=== PATIENT | male | born 1965 | race African-American/Black ===

== ENCOUNTER 2023-01-21 06:37 | Inpatient (IN) | payer OTHER ==
[~2023-01-21] VITALS: Ht 167.6 cm; Wt 95.0 kg
[2023-01-21] MEDS ORDERED: MAALOX PLUS or MAALOX 30 ML PO ONE (07:45)
[2023-01-21] MEDS ORDERED: ONDANSETRON ODT 4 MG TAB PO ONE (07:45)
[2023-01-21] MEDS ORDERED: SODIUM CHLORIDE 0.9% 1,000 ML IV ONE (08:00)
[2023-01-21 08:09] LABS: Hematocrit 53.1 % (41.0-53.0); Hemoglobin 17.5 g/dL (13.5-17.5); Mean Corpuscular Hemoglobin 29.1 pg (28.0-32.0); Red Blood Cells 6.03 10^6/uL (4.5-5.90); Red Cell Distribution Width 13.3 % (11.8-14.3); White Blood Cell 4.9 10^3/uL (4.4-10.8)
[2023-01-21 08:12] LABS: Band Neutrophils % (manual) 0; Basophils % (manual) 0 (0.0-2.0); Blast Cells 0; Eosinophils % (manual) 0 (0-7); Metamyelocytes % 0; Myelocytes % 0; Promyelocytes % 0; Reactive Lymphocytes 0
[2023-01-21 08:44] LABS: Bilirubin, Direct 0.2 mg/dL (<0.3)
[2023-01-21 09:09] LABS: Lymphocytes % (manual) 21 (10.0-50.0); Monocytes % (manual) 12 (0-12); Platelet Estimate Adequate
[2023-01-21 09:14] LABS: Magnesium 1.9 mg/dL (1.6-2.6)
[2023-01-21 09:19] LABS: COVID19 ANTIGEN SOFIA FIA POSITIVE (NEGATIVE)
[2023-01-21 09:42] LABS: Rapid Influenza A Negative (Negative); Rapid Influenza B Negative (Negative)
[2023-01-21] MEDS ORDERED: ZOFR4T PO (09:48)
[2023-01-21] MEDS ORDERED: NIRM1TAB5 PO (09:48)
[2023-01-21] MEDS ORDERED: METOCLOPRAMIDE HCL 5MG/ml INJ 2ml VIAL IV ONE (10:00)
[2023-01-21 10:05] VITALS: PULSE 82; RESP 19; O2SAT 96
[2023-01-21 10:06] LABS: Alanine Aminotransferase 36 U/L (7-40); Albumin 5.2 g/dL (3.2-4.8); Alkaline Phosphatase 85 U/L (46-116); Anion Gap 10 (5-15); Aspartate Aminotransferase 37 U/L (13-40); BUN/Creatinine Ratio 16.5 (10.0-20.0); Bilirubin, Total 0.5 mg/dL (0.2-1.0); Blood Urea Nitrogen 21 mg/dL (9-23); Calcium 9.9 mg/dL (8.5-10.1); Carbon Dioxide 30 mmol/L (20-30); Chloride 97 mmol/L (98-107); Glucose 108 mg/dL (74-106); Potassium 3.6 mmol/L (3.5-5.1); Sodium 137 mmol/L (136-145); Total Protein 8.3 g/dL (5.7-8.2)
[2023-01-21] MEDS ORDERED: IOHEXOL 350 MG/ML 100ML IJ ONE (10:21)
[2023-01-21 10:34] LABS: Lipase 32 U/L (12-53)
[2023-01-21 10:55] LABS: Base Excess 0.1 mmol/L (-2.0-2.0)
[2023-01-21] MEDS: SODIUM CHLORIDE 0.9% 1,000 ML IV SCH (11:15)
[2023-01-21] MEDS ORDERED: NITROGLYCERIN 0.4 MG SL TAB SL PRN (11:15)
[2023-01-21] MEDS ORDERED: ACETAMINOPHEN 325 MG TAB PO PRN (11:15)
[2023-01-21] MEDS ORDERED: MORPHINE SULFATE INJ 2 MG/ml SYRG IV PRN (11:15)
[2023-01-21] MEDS ORDERED: DexAMETHasone SOD PHOS 10MG/1ML VIAL INJ IV ONE (13:15)
[2023-01-21] MEDS ORDERED: AZITHROMYCIN 500MG/ 250ML 250 ML IV ONE (13:15)
[2023-01-21] MEDS ORDERED: ASCORBIC ACID 500 MG TAB PO ONE (13:15)
[2023-01-21] MEDS ORDERED: CHOLECALCIFEROL (VITD3) 2,000 UNIT CAP/TAB PO ONE (13:15)
[2023-01-21] MEDS: ONDANSETRON HCL 4 MG/2 ML VIAL IV PRN ×2 (13:44→22:26)
[2023-01-21] MEDS ORDERED: ZINC SULFATE 220mg CAP or TAB PO ONE (13:45)
[2023-01-21] MEDS: SODIUM CHLOR 0.9% PF (SALINE LOCK) 10ML VIAL/SYR IV SCH ×2 (13:48→22:06)
[2023-01-21 13:58] LABS: Urine Bacteria NONE SEEN /hpf (None Seen); Urine Blood Negative /uL (Negative); Urine Clarity Clear (Clear); Urine Color Yellow (Yellow); Urine Hyaline Cast MANY /lpf (0 - 2); Urine Mucus FEW (None Seen); Urine Protein, UAD 2+ (Negative); Urine Specific Gravity 1.025 (1.001-1.035); Urine Urobilinogen Normal (Negative); Urine WBC 4 /hpf (0 - 3)
[2023-01-21 14:16] LABS: INR 1.07 (0.9-1.15); Partial Thromboplastin Time 30.5 SEC (24.5-34.5); Prothrombin Time 11.2 sec (9.3-11.8)
[2023-01-21] MEDS ORDERED: REMDESIVIR PER PHARMACY 0 ML IV SCH (16:00)
[2023-01-21] MEDS ORDERED: REMDESIVIR 200 MG in NS 210ml LOADING DOSE ADULT IV ONE (17:00)
[2023-01-21] MEDS: METOCLOPRAMIDE HCL 5MG/ml INJ 2ml VIAL IV SCH (17:48)
[2023-01-21 19:37] VITALS: PULSE 94; RESP 16; O2SAT 99
[2023-01-21] MEDS: ASCORBIC ACID 500 MG TAB PO SCH (22:07)
[2023-01-21 23:21] VITALS: BP 145/95; PULSE 74; RESP 18; TEMP 97.9; O2SAT 97
[2023-01-22] VITALS (10 sets, daily range): BP systolic 144–155; BP diastolic 93–100; PULSE 77–91; RESP 18–22; TEMP 98.1–99.4; O2SAT 97–100
[2023-01-22] MEDS ORDERED: IBUP-1454 PO (01:09)
[2023-01-22] MEDS: SODIUM CHLORIDE 0.9% 1,000 ML IV SCH ×2 (01:57→17:21)
[2023-01-22] MEDS: ONDANSETRON HCL 4 MG/2 ML VIAL IV PRN (03:08)
[2023-01-22] MEDS: SODIUM CHLOR 0.9% PF (SALINE LOCK) 10ML VIAL/SYR IV SCH ×3 (06:08→21:34)
[2023-01-22] MEDS: METOCLOPRAMIDE HCL 5MG/ml INJ 2ml VIAL IV SCH ×3 (06:09→21:37)
[2023-01-22 09:37] LABS: Basophils # (auto) 0 10 ^3/uL (0-0.2); Basophils % (auto) 0.4 % (0.0-2.0); Eosinophils # (auto) 0 10 ^3/uL (0-0.8); Eosinophils % (auto) 0.2 % (0.0-7.0); Lymphocytes # (auto) 1.3 10 ^3/uL (0.4-5.4); Lymphocytes % (auto) 30.1 % (10.0-50.0); Mean Corpuscular Hemoglobin 29.4 pg (28.0-32.0); Mean Corpuscular Hgb Conc. 32.7 g/dL (32.0-36.0); Monocytes # (auto) 0.6 10 ^3/uL (0-1.3); Monocytes % (auto) 13.8 % (0.0-12.0); Neutrophils # (auto) 2.4 10 ^3/uL (1.6-8.6); Neutrophils % (auto) 55.5 % (37.0-80.0); Nucleated Red Blood Cells % 0.2 %; Red Blood Cells 5.44 10^6/uL (4.5-5.90); White Blood Cell 4.2 10^3/uL (4.4-10.8)
[2023-01-22 09:57] LABS: Alanine Aminotransferase 32 U/L (7-40); Albumin 4.6 g/dL (3.2-4.8); Alkaline Phosphatase 73 U/L (46-116); Anion Gap 4 (5-15); Aspartate Aminotransferase 40 U/L (13-40); BUN/Creatinine Ratio 10.9 (10.0-20.0); Blood Urea Nitrogen 11 mg/dL (9-23); CRP High Sensitivity 0.04 mg/dL (<1.0); Calcium 9.1 mg/dL (8.5-10.1); Carbon Dioxide 34 mmol/L (20-30); Chloride 98 mmol/L (98-107); Glucose 97 mg/dL (74-106); Sodium 136 mmol/L (136-145)
[2023-01-22 09:58] LABS: Bilirubin, Total 0.6 mg/dL (0.2-1.0); Total Protein 7.6 g/dL (5.7-8.2)
[2023-01-22] MEDS: AZITHROMYCIN 500MG/ 250ML 250 ML IV SCH (11:29)
[2023-01-22] MEDS: PANTOPRAZOLE 40 MG/10 ML VIAL INJ IV SCH (11:30)
[2023-01-22] MEDS: ZINC SULFATE 220mg CAP or TAB PO SCH (11:30)
[2023-01-22] MEDS: CHOLECALCIFEROL (VITD3) 2,000 UNIT CAP/TAB PO SCH (11:31)
[2023-01-22] MEDS: ASCORBIC ACID 500 MG TAB PO SCH ×2 (11:31→21:34)
[2023-01-22] MEDS: ENOXAPARIN SOD 40 MG/0.4 ML SYRINGE SC SCH (11:32)
[2023-01-22] MEDS: DexAMETHasone SOD PHOS 10MG/1ML VIAL INJ IV SCH (11:33)
[2023-01-22 13:45] LABS: Magnesium 2.1 mg/dL (1.6-2.6)
[2023-01-22] MEDS ORDERED: REMDESIVIR 100mg 100 MG in SODIUM CHL 0.9% 230 ML IV SCH (15:00)
[2023-01-22] MEDS: REMDESIVIR 100mg 100 MG in SODIUM CHL 0.9% 230 ML IV SCH (15:00)
[2023-01-23] VITALS (13 sets, daily range): BP systolic 106–148; BP diastolic 59–106; PULSE 67–98; RESP 18–22; TEMP 97.6–99.8; O2SAT 94–99
[2023-01-23] MEDS: METOCLOPRAMIDE HCL 5MG/ml INJ 2ml VIAL IV SCH ×3 (06:01→21:58)
[2023-01-23] MEDS: SODIUM CHLOR 0.9% PF (SALINE LOCK) 10ML VIAL/SYR IV SCH ×3 (06:01→21:58)
[2023-01-23] MEDS: SODIUM CHLORIDE 0.9% 1,000 ML IV SCH ×2 (06:02→20:27)
[2023-01-23 07:48] LABS: Basophils # (auto) 0 10 ^3/uL (0-0.2); Basophils % (auto) 0.5 % (0.0-2.0); Eosinophils # (auto) 0 10 ^3/uL (0-0.8); Hematocrit 48.7 % (41.0-53.0); Lymphocytes # (auto) 1.6 10 ^3/uL (0.4-5.4); Lymphocytes % (auto) 37.7 % (10.0-50.0); Mean Corpuscular Hemoglobin 29.3 pg (28.0-32.0); Mean Corpuscular Hgb Conc. 32.9 g/dL (32.0-36.0); Mean Corpuscular Volume 89.1 fL (80.0-100.0); Monocytes # (auto) 0.5 10 ^3/uL (0-1.3); Monocytes % (auto) 11.3 % (0.0-12.0); Neutrophils # (auto) 2.1 10 ^3/uL (1.6-8.6); Neutrophils % (auto) 50.5 % (37.0-80.0); Nucleated Red Blood Cells % 0.4 %; Red Blood Cells 5.47 10^6/uL (4.5-5.90); White Blood Cell 4.2 10^3/uL (4.4-10.8)
[2023-01-23 08:08] LABS: Alanine Aminotransferase 33 U/L (7-40); Albumin 4.6 g/dL (3.2-4.8); Alkaline Phosphatase 71 U/L (46-116); Anion Gap 8 (5-15); Aspartate Aminotransferase 35 U/L (13-40); BUN/Creatinine Ratio 12.8 (10.0-20.0); Blood Urea Nitrogen 11 mg/dL (9-23); Calcium 9.4 mg/dL (8.5-10.1); Carbon Dioxide 29 mmol/L (20-30); Chloride 98 mmol/L (98-107); Glucose 83 mg/dL (74-106); Sodium 135 mmol/L (136-145); Total Protein 7.5 g/dL (5.7-8.2)
[2023-01-23] MEDS: CHOLECALCIFEROL (VITD3) 2,000 UNIT CAP/TAB PO SCH (11:04)
[2023-01-23] MEDS: AZITHROMYCIN 500MG/ 250ML 250 ML IV SCH (11:04)
[2023-01-23] MEDS: ZINC SULFATE 220mg CAP or TAB PO SCH (11:05)
[2023-01-23] MEDS: ASCORBIC ACID 500 MG TAB PO SCH ×2 (11:05→21:58)
[2023-01-23] MEDS: ENOXAPARIN SOD 40 MG/0.4 ML SYRINGE SC SCH (11:05)
[2023-01-23] MEDS: PANTOPRAZOLE 40 MG/10 ML VIAL INJ IV SCH (11:06)
[2023-01-23] MEDS: DexAMETHasone SOD PHOS 10MG/1ML VIAL INJ IV SCH (11:06)
[2023-01-23] MEDS: REMDESIVIR 100mg 100 MG in SODIUM CHL 0.9% 230 ML IV SCH (15:00)
[2023-01-23] MEDS: ONDANSETRON HCL 4 MG/2 ML VIAL IV PRN (16:07)
[2023-01-24] VITALS (12 sets, daily range): BP systolic 109–150; BP diastolic 83–103; PULSE 77–107; RESP 15–19; TEMP 97.5–99; O2SAT 91–100
[2023-01-24] MEDS: SODIUM CHLOR 0.9% PF (SALINE LOCK) 10ML VIAL/SYR IV SCH ×3 (05:43→22:00)
[2023-01-24] MEDS: METOCLOPRAMIDE HCL 5MG/ml INJ 2ml VIAL IV SCH ×3 (05:43→21:35)
[2023-01-24 09:22] LABS: Basophils # (auto) 0 10 ^3/uL (0-0.2); Eosinophils # (auto) 0 10 ^3/uL (0-0.8); Eosinophils % (auto) 0.2 % (0.0-7.0); Lymphocytes # (auto) 1.4 10 ^3/uL (0.4-5.4); Lymphocytes % (auto) 33.5 % (10.0-50.0); Mean Corpuscular Hemoglobin 29.1 pg (28.0-32.0); Mean Corpuscular Hgb Conc. 32.7 g/dL (32.0-36.0); Mean Corpuscular Volume 88.9 fL (80.0-100.0); Monocytes # (auto) 0.4 10 ^3/uL (0-1.3); Monocytes % (auto) 9.4 % (0.0-12.0); Neutrophils # (auto) 2.4 10 ^3/uL (1.6-8.6); Neutrophils % (auto) 55.9 % (37.0-80.0); Nucleated Red Blood Cells % 0.2 %; Red Blood Cells 5.51 10^6/uL (4.5-5.90); Red Cell Distribution Width 12.6 % (11.8-14.3); White Blood Cell 4.3 10^3/uL (4.4-10.8)
[2023-01-24 09:28] LABS: Anion Gap 6 (5-15); Carbon Dioxide 29 mmol/L (20-30); Chloride 98 mmol/L (98-107); Potassium 3.7 mmol/L (3.5-5.1); Sodium 133 mmol/L (136-145)
[2023-01-24 09:34] LABS: BUN/Creatinine Ratio 14.5 (10.0-20.0); Blood Urea Nitrogen 12 mg/dL (9-23); Glucose 119 mg/dL (74-106)
[2023-01-24] MEDS: PANTOPRAZOLE 40 MG/10 ML VIAL INJ IV SCH (10:26)
[2023-01-24] MEDS: ENOXAPARIN SOD 40 MG/0.4 ML SYRINGE SC SCH (10:27)
[2023-01-24] MEDS: ASCORBIC ACID 500 MG TAB PO SCH ×2 (10:27→21:35)
[2023-01-24] MEDS: AZITHROMYCIN 500MG/ 250ML 250 ML IV SCH (10:27)
[2023-01-24] MEDS: CHOLECALCIFEROL (VITD3) 2,000 UNIT CAP/TAB PO SCH (10:27)
[2023-01-24] MEDS: DexAMETHasone SOD PHOS 10MG/1ML VIAL INJ IV SCH (10:27)
[2023-01-24] MEDS: ZINC SULFATE 220mg CAP or TAB PO SCH (10:27)
[2023-01-24] MEDS: SODIUM CHLORIDE 0.9% 1,000 ML IV SCH (10:45)
[2023-01-24] MEDS: Ensure HIGH Protein Vanilla 8oz Bottle PO SCH ×2 (12:00→18:00)
[2023-01-24] MEDS: REMDESIVIR 100mg 100 MG in SODIUM CHL 0.9% 230 ML IV SCH (15:00)
[2023-01-25] VITALS (12 sets, daily range): BP systolic 106–149; BP diastolic 58–89; PULSE 16–110; RESP 16–93; TEMP 97.7–99.2; O2SAT 92–98
[2023-01-25] MEDS: SODIUM CHLORIDE 0.9% 1,000 ML IV SCH ×3 (01:03→21:46)
[2023-01-25] MEDS: SODIUM CHLOR 0.9% PF (SALINE LOCK) 10ML VIAL/SYR IV SCH ×3 (06:00→21:46)
[2023-01-25] MEDS: METOCLOPRAMIDE HCL 5MG/ml INJ 2ml VIAL IV SCH ×3 (06:00→21:46)
[2023-01-25] MEDS: Ensure HIGH Protein Vanilla 8oz Bottle PO SCH ×3 (07:44→18:03)
[2023-01-25] MEDS: ENOXAPARIN SOD 40 MG/0.4 ML SYRINGE SC SCH (10:34)
[2023-01-25] MEDS: ASCORBIC ACID 500 MG TAB PO SCH ×2 (10:34→21:46)
[2023-01-25] MEDS: AZITHROMYCIN 500MG/ 250ML 250 ML IV SCH (10:34)
[2023-01-25] MEDS: PANTOPRAZOLE 40 MG/10 ML VIAL INJ IV SCH (10:34)
[2023-01-25] MEDS: DexAMETHasone SOD PHOS 10MG/1ML VIAL INJ IV SCH (10:34)
[2023-01-25] MEDS: CHOLECALCIFEROL (VITD3) 2,000 UNIT CAP/TAB PO SCH (10:34)
[2023-01-25] MEDS: ZINC SULFATE 220mg CAP or TAB PO SCH (10:35)
[2023-01-25] MEDS: REMDESIVIR 100mg 100 MG in SODIUM CHL 0.9% 230 ML IV SCH (15:00)
[2023-01-26] VITALS (9 sets, daily range): BP systolic 128–143; BP diastolic 88–93; PULSE 77–109; RESP 18–20; TEMP 97.9–98.4; O2SAT 62–99
[2023-01-26] MEDS: METOCLOPRAMIDE HCL 5MG/ml INJ 2ml VIAL IV SCH (06:00)
[2023-01-26] MEDS: SODIUM CHLOR 0.9% PF (SALINE LOCK) 10ML VIAL/SYR IV SCH (06:00)
[2023-01-26] MEDS: Ensure HIGH Protein Vanilla 8oz Bottle PO SCH ×2 (08:00→12:15)
[2023-01-26 10:14] LABS: Basophils # (auto) 0 10 ^3/uL (0-0.2); Basophils % (auto) 0.6 % (0.0-2.0); Eosinophils # (auto) 0 10 ^3/uL (0-0.8); Eosinophils % (auto) 0.2 % (0.0-7.0); Hematocrit 47.3 % (41.0-53.0); Hemoglobin 15.8 g/dL (13.5-17.5); Lymphocytes # (auto) 1.4 10 ^3/uL (0.4-5.4); Lymphocytes % (auto) 17.7 % (10.0-50.0); Mean Corpuscular Hemoglobin 29.5 pg (28.0-32.0); Mean Corpuscular Hgb Conc. 33.4 g/dL (32.0-36.0); Mean Corpuscular Volume 88.4 fL (80.0-100.0); Monocytes % (auto) 12.1 % (0.0-12.0); Neutrophils # (auto) 5.7 10 ^3/uL (1.6-8.6); Neutrophils % (auto) 69.4 % (37.0-80.0); Red Blood Cells 5.35 10^6/uL (4.5-5.90); Red Cell Distribution Width 12.5 % (11.8-14.3); White Blood Cell 8.2 10^3/uL (4.4-10.8)
[2023-01-26] MEDS ORDERED: CHOL1CAP47 PO (10:18)
[2023-01-26] MEDS ORDERED: DEXA6TAB PO (10:18)
[2023-01-26] MEDS ORDERED: ASCO500T11 PO (10:18)
[2023-01-26] MEDS ORDERED: ZINC220C10 PO (10:19)
[2023-01-26 10:23] LABS: Chloride 102 mmol/L (98-107); Potassium 3.8 mmol/L (3.5-5.1); Sodium 136 mmol/L (136-145)
[2023-01-26 10:24] LABS: Anion Gap 8 (5-15); Carbon Dioxide 26 mmol/L (20-30)
[2023-01-26 10:25] LABS: Calcium 9.2 mg/dL (8.5-10.1)
[2023-01-26 10:29] LABS: Glucose 100 mg/dL (74-106)
[2023-01-26 10:30] LABS: BUN/Creatinine Ratio 22.1 (10.0-20.0); Blood Urea Nitrogen 19 mg/dL (9-23)
[2023-01-26] MEDS: DexAMETHasone SOD PHOS 10MG/1ML VIAL INJ IV SCH (11:07)
[2023-01-26] MEDS: AZITHROMYCIN 500MG/ 250ML 250 ML IV SCH (11:07)
[2023-01-26] MEDS: ZINC SULFATE 220mg CAP or TAB PO SCH (11:07)
[2023-01-26] MEDS: PANTOPRAZOLE 40 MG/10 ML VIAL INJ IV SCH (11:07)
[2023-01-26] MEDS: ENOXAPARIN SOD 40 MG/0.4 ML SYRINGE SC SCH ×2 (11:08→12:15)
[2023-01-26] MEDS: ASCORBIC ACID 500 MG TAB PO SCH (11:08)
[2023-01-26] MEDS: CHOLECALCIFEROL (VITD3) 2,000 UNIT CAP/TAB PO SCH (11:08)
== END 2023-01-26 15:23 | disposition home or self-care (01) | DRG 177 ==
LOC: ER 06:37 → TELE 11:03 → TELE-WESTW 11:12
PROVIDERS: ADMIT Internal Medicine Geriatric Medicine; ATTEND Internal Medicine
PROC: XW033E5 Introduction of Remdesivir Anti-infective into Peripheral Vein, Percutaneous Approach, New Technology Group 5 (ICD-10-PCS; principal; 2023-01-21)
PROC: 5A09357 Assistance with Respiratory Ventilation, Less than 24 Consecutive Hours, Continuous Positive Airway Pressure (ICD-10-PCS; 2023-01-22)
PROC: 5A09357 Assistance with Respiratory Ventilation, Less than 24 Consecutive Hours, Continuous Positive Airway Pressure (ICD-10-PCS; 2023-01-23)
PROC: 5A09357 Assistance with Respiratory Ventilation, Less than 24 Consecutive Hours, Continuous Positive Airway Pressure (ICD-10-PCS; 2023-01-24)
PROC: 5A09357 Assistance with Respiratory Ventilation, Less than 24 Consecutive Hours, Continuous Positive Airway Pressure (ICD-10-PCS; 2023-01-25)
PROC: 5A09357 Assistance with Respiratory Ventilation, Less than 24 Consecutive Hours, Continuous Positive Airway Pressure (ICD-10-PCS; 2023-01-26)
DX: U07.1 COVID-19 (principal); J12.82 Pneumonia due to coronavirus disease 2019; J96.01 Acute respiratory failure with hypoxia; E87.1 Hypo-osmolality and hyponatremia; J98.11 Atelectasis; K29.70 Gastritis, unspecified, without bleeding; T39.395A Adverse effect of other nonsteroidal anti-inflammatory drugs [NSAID], initial encounter; G47.33 Obstructive sleep apnea (adult) (pediatric); M19.011 Primary osteoarthritis, right shoulder; M19.012 Primary osteoarthritis, left shoulder; Z78.9 Other specified health status; Z87.891 Personal history of nicotine dependence; Y92.89 Other specified places as the place of occurrence of the external cause
CPT/HCPCS: 36415; 36600; 71045; 71275; 74176; 80048; 80053; 81001; 82248; 82805; 83605; 83690; 83735; 84484; 85007; 85025; 85027; 85379; 85610; 85730; 86141; 87426; 87804; 93005; 94660; 96361; 96374; C9113; G0378; J1100; J2405; Q0162